=== PATIENT | male | born 1985 ===

== ENCOUNTER 2017-08-21 | Emergency (ER) | payer OTHER ==
--- NOTE | 2017-08-21 00:37 | C.PDOC ---
History Of Present Illness 32 y/o M c PMHx HTN p/w L ear pain x 1 week. States pain is constant, in ear and posteriorly. Denies fever, stiff neck, discharge, trauma, swelling. arrived from [place] 2 months ago and has not been on his HTN medication since because he left it in [place]. Received medical insurance this past week so came to ED today, states he does not know "the procedure" to get medical treatment. Denies chest pain, dyspnea, abdominal pain, back pain, vomiting, numbness, weakness. Time Seen by Provider: 08/21/17 00:25 Chief Complaint (Nursing): High Blood Pressure Past Medical History Vital Signs: Last Vital Signs Temp 97.5 F L 08/21/17 00:14 Pulse 76 08/21/17 00:14 Resp 20 08/21/17 00:14 BP 162/125 H 08/21/17 00:14 Pulse Ox 96 08/21/17 00:14 - Medical History PMH: HTN Surgical History: Appendectomy - Social History Hx Alcohol Use: No Hx Substance Use: No - Immunization History Hx Tetanus Toxoid Vaccination: No Hx Influenza Vaccination: No Hx Pneumococcal Vaccination: No Review Of Systems Except As Marked, All Systems Reviewed And Found Negative. Constitutional: Negative for: Fever Cardiovascular: Negative for: Chest Pain Physical Exam - Physical Exam Additional Physical Exam Comments: Gen: NAD Head: NC/AT Eyes: No scleral icterus ENT: L TM mildly erythematous. No external ear edema or tenderness with manipulation. No mastoid tenderness. Neck: FROM, no rigidity Chest: No tenderness CV: No extra heart sounds, regular rate Lungs: No crackles or rhonchi Abd: Soft, NT Back: No midline or CVA tenderness Extremities: No swelling or tenderness Skin: No rash Neuro: Alert, no focal deficit ED Course And Treatment O2 Sat by Pulse Oximetry: 96 Disposition - Disposition
[2017-08-21 00:53] VITALS: BP 152/103; PULSE 74; RESP 16; TEMP 98; O2SAT 100
== END 2017-08-21 01:04 | disposition home or self-care (01) ==
LOC: C.ER
DX: H66.92 Otitis media, unspecified, left ear (principal); I10 Essential (primary) hypertension

== ENCOUNTER 2018-03-05 00:52 | Emergency (ER) | payer SELFPAY ==
[2018-03-05 01:05] VITALS: TEMP 98.4
[2018-03-05 01:29] LABS: BASO % 0.5 % (0.0-2.0); EOS # 0.6 K/uL (0.0-0.7); EOS % 7.4 % (0.0-4.0); HEMOGLOBIN 13.4 g/dL (12.0-18.0); LYMPH # 2.1 K/uL (1.0-4.3); LYMPH % 24.6 % (20.0-40.0); MEAN CORPUSCULAR HEMOGLOBIN 22.2 pg (27.0-31.0); MEAN CORPUSCULAR HGB CONC 32.1 g/dL (33.0-37.0); MEAN PLATELET VOLUME 12.9 fL (7.2-11.7); MONO # 0.5 K/uL (0.0-0.8); MONO % 6.3 % (0.0-10.0); NEUT # 5.2 K/uL (1.8-7.0); NEUT % 61.2 % (50.0-75.0); NRBC % 0.1 % (0.0-2.0); RBC 6.05 Mil/uL (4.40-5.90); RED CELL DISTRIBUTION WIDTH 14.1 % (11.5-14.5); WHITE BLOOD COUNT 8.4 K/uL (4.8-10.8)
[2018-03-05] MEDS ORDERED: Sodium Chloride 0.9% 1,000 ML IV ONE (01:32)
--- NOTE | 2018-03-05 01:34 | C.PDOC ---
History Of Present Illness 32 year old male presents to the ED c/o left sided chest pain, localized that started yesterday. Patient reports pain increased on palpation and deep breathing. Patient denies fever, chills, SOB, palpitations, injury, fall, trauma, weakness, numbness. Chief Complaint (Nursing): Chest Pain History Per: Patient History/Exam Limitations: no limitations Onset/Duration Of Symptoms: Days Current Symptoms Are (Timing): Still Present Quality: "Pain" Exacerbating Factors: Movement, Deep Breathing Recent travel outside of the [place]: No Additional History Per: Patient Past Medical History Reviewed: Historical Data, Nursing Documentation, Vital Signs Vital Signs: Last Vital Signs Temp 98.4 F 03/05/18 01:01 Pulse 85 03/05/18 01:31 Resp 18 03/05/18 01:31 BP 133/85 03/05/18 01:31 Pulse Ox 97 03/05/18 01:31 - Medical History PMH: HTN Surgical History: Appendectomy Family History: States: Unknown Family Hx - Social History Hx Alcohol Use: No Hx Substance Use: No - Immunization History Hx Tetanus Toxoid Vaccination: No Hx Influenza Vaccination: No Hx Pneumococcal Vaccination: No Review Of Systems Constitutional: Negative for: Fever, Chills Cardiovascular: Positive for: Chest Pain. Negative for: Palpitations Gastrointestinal: Negative for: Nausea, Vomiting Skin: Negative for: Rash Neurological: Negative for: Weakness, Numbness Physical Exam - Physical Exam Appears: Non-toxic, No Acute Distress Skin: Normal Color, Warm, Dry Head: Atraumatic, Normacephalic Eye(s): bilateral: Normal Inspection Neck: Normal ROM, Supple Chest: Symmetrical, Tenderness (over left 4th parasternal area) Cardiovascular: Rhythm Regular Respiratory: Normal Breath Sounds, No Rales, No Rhonchi, No Wheezing Gastrointestinal/Abdominal: Soft, No Tenderness, No Guarding, No Rebound Extremity: Normal ROM, No Tenderness, No Swelling Neurological/Psych: Oriented x3, Normal Speech, Normal Cognition Gait: Steady ED Course And Treatment - Laboratory Results Result Diagrams: 03/05/18 01:24 03/05/18 01:24 ECG: Interpreted By Me, Viewed By Me ECG Rhythm: Sinus Rhythm ECG Interpretation: Normal, No Acute Changes Interpretation Of ECG: NSR, normal tracoings. Rate From EC O2 Sat by Pulse Oximetry: 97 (ON RA) Pulse Ox Interpretation: Normal Medical Decision Making Medical Decision Making: Plan: * Labs * CXR * EKG * IV fluids * Toradol 30 mg IVP Disposition - Disposition Referrals: Non [facility] Provider, [Primary Care Provider] - Disposition Time: 02:42 Condition: STABLE Prescriptions: Naproxen 375 mg PO TIDPC #20 tablet Instructions: Costochondritis (DC) Forms: [facility] (Faroese) - POA Present On Arrival: None - Clinical Impression Clinical Impression: Chest wall pain - Scribe Statement The provider has reviewed the documentation as recorded by the Scribe De Abdi All medical record entries made by the Scribe were at my direction and personally dictated by me. I have reviewed the chart and agree that the record accurately reflects my personal performance of the history, physical exam, medical decision making, and the department course for this patient. I have also personally directed, reviewed, and agree with the discharge instructions and disposition.
[2018-03-05 01:35] LABS: INR 1.1; PROTHROMBIN TIME 12.3 SECONDS (9.7-12.2)
[2018-03-05 01:38] LABS: ALB/GLOB RATIO 1.6 (1.0-2.1); ALBUMIN 4.4 g/dL (3.5-5.0); ALT/SGPT 25 U/L (21-72); AST/SGOT 25 U/L (17-59); BLOOD UREA NITROGEN 26 mg/dL (9-20); CALCIUM 9.2 mg/dl (8.6-10.4); GFR NON-AFRICAN AMERICAN > 60
[2018-03-05] MEDS ORDERED: Sodium Chloride 0.9% 1,000 ML ONE (01:40)
[2018-03-05 01:50] LABS: CK-MB 4.26 ng/mL (0.0-3.38)
[2018-03-05 02:00] VITALS: BP 142/100; PULSE 82; RESP 20
[2018-03-05 02:23] LABS: MEAN CELL VOLUME 69.2 fL (80.0-94.0)
[2018-03-05 02:44] VITALS: O2SAT 97
--- NOTE | 2018-03-05 08:55 | RAD ---
Date of service: 03/05/2018 HISTORY: Chest pain COMPARISON: 03/05/2018 FINDINGS: LUNGS: The lungs are clear. PLEURA: No significant pleural effusion identified, no pneumothorax apparent. CARDIOVASCULAR: Normal. OSSEOUS STRUCTURES: No significant abnormalities. VISUALIZED UPPER ABDOMEN: Normal. OTHER FINDINGS: None. IMPRESSION: No active pulmonary disease.
--- NOTE | 2018-03-05 08:59 | RAD ---
HISTORY: Left-sided chest pain COMPARISON: No prior. TECHNIQUE: Chest PA and lateral FINDINGS: LINES AND TUBES: None. LUNG AND PLEURA: The lungs are well inflated and clear. There is bibasilar atelectasis. No pleural effusion or pneumothorax. HEART AND MEDIASTINUM: The heart is not enlarged. The hilar and mediastinal contours are within normal limits. SKELETAL STRUCTURES: The bony structures are within normal limits for the patient's age. VISUALIZED UPPER ABDOMEN: Normal. OTHER FINDINGS: None. IMPRESSION: No active pulmonary disease.
== END 2018-03-05 02:54 | disposition home or self-care (01) ==
LOC: C.ER 00:52 → SUPCPDRO 00:52 → C.ER 02:54
DX: R07.89 Other chest pain (principal); I10 Essential (primary) hypertension
CPT/HCPCS: 71045; 71046; 80053; 83735; 84484; 85025; 85378; 85610; 85730; 96374; 99285; J1885; J7030

== ENCOUNTER 2018-04-25 06:42 | Emergency (ER) | payer SELFPAY ==
--- NOTE | 2018-04-25 07:49 | C.PDOC ---
History Of Present Illness HEMATOCHEZIA X 4 THIS MORNING. PS AWOKE FROM SLEEPING COUGHING, 4 EPISODES OF BRB CLOTS. NO NV. DENIES CP, SOB. DENIES SMOKING, TB CONTACT, TRAVEL WITHIN 1 YR. CURRENTLY ASYMPT. 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 Time Seen by Provider: 04/25/18 07:18 Chief Complaint (Nursing): Medical Clearance History Per: Patient History/Exam Limitations: no limitations Onset/Duration Of Symptoms: Hrs Current Symptoms Are (Timing): Gone Severity: Moderate Past Medical History Reviewed: Historical Data, Nursing Documentation, Vital Signs Vital Signs: Last Vital Signs Temp 97.9 F 04/25/18 06:50 Pulse 74 04/25/18 06:50 Resp 20 04/25/18 06:50 BP 139/99 H 04/25/18 06:50 Pulse Ox 99 04/25/18 06:50 - Medical History PMH: HTN Surgical History: Appendectomy Family History: States: No Known Family Hx - Social History Hx Alcohol Use: No Hx Substance Use: No - Immunization History Hx Tetanus Toxoid Vaccination: No Hx Influenza Vaccination: No Hx Pneumococcal Vaccination: No Review Of Systems Except As Marked, All Systems Reviewed And Found Negative. Constitutional: Negative for: Fever, Chills Cardiovascular: Negative for: Chest Pain Respiratory: Positive for: Cough. Negative for: Shortness of Breath Gastrointestinal: Positive for: Hematochezia. Negative for: Nausea, Vomiting Physical Exam - Physical Exam Appears: Non-toxic, No Acute Distress Skin: Normal Color (no pallor), Warm, Dry Head: Atraumatic, Normacephalic Eye(s): bilateral: Normal Inspection Ear(s): Bilateral: Normal Nose: Normal Oral Mucosa: Moist Throat: Normal, No Erythema, No Exudate Neck: Supple Chest: Symmetrical Cardiovascular: Rhythm Regular Respiratory: Normal Breath Sounds, No Rales, No Rhonchi, No Wheezing, Other (speaking full sentences) Neurological/Psych: Oriented x3, Normal Speech ED Course And Treatment - Laboratory Results Result Diagrams: 04/25/18 07:58 04/25/18 07:58 ECG: Interpreted By Me ECG Rhythm: Sinus Rhythm ECG Interpretation: Normal Rate From EC O2 Sat by Pulse Oximetry: 99 (RA) Pulse Ox Interpretation: Normal - Radiology CXR: Interpreted by Me, Viewed By Me CXR Interpretation: Yes: No Acute Disease Progress - Re-Evaluation Re-evaluation Note: 04/25/18 11:16 NO RECUR SX SINCE ER ARRIVAL. VSS NARD. CT NEG ADVISED FU PMD - Data Reviewed Data Reviewed: Lab, Diagnostic imaging, EKG, Old records Medical Decision Making Medical Decision Making: Plan: --Labs --ECG --CXR Disposition Counseled Patient/Family Regarding: Studies Performed, Diagnosis, Need For Followup - Disposition Referrals: YOUR,PMD [Other] Disposition: HOME/ ROUTINE Disposition Time: 11:17 Condition: GOOD Instructions: Coughing up Blood Forms: [facility] ([place]ican), Work Excuse - Clinical Impression Clinical Impression: Cough with hemoptysis - Scribe Statement The provider has reviewed the documentation as recorded by the Pierce Marks Provider Attestation: All medical record entries made by the Scribe were at my direction and personally dictated by me. I have reviewed the chart and agree that the record accurately reflects my personal performance of the history, physical exam, medical decision making, and the department course for this patient. I have also personally directed, reviewed, and agree with the discharge instructions and disposition.
[2018-04-25 08:02] LABS: BASO % 0.8 % (0.0-2.0); EOS # 0.4 K/uL (0.0-0.7); EOS % 6.6 % (0.0-4.0); HEMOGLOBIN 13.4 g/dL (12.0-18.0); LYMPH # 1.8 K/uL (1.0-4.3); LYMPH % 30.4 % (20.0-40.0); MEAN CELL VOLUME 69.4 fL (80.0-94.0); MEAN CORPUSCULAR HEMOGLOBIN 21.8 pg (27.0-31.0); MEAN CORPUSCULAR HGB CONC 31.4 g/dL (33.0-37.0); MEAN PLATELET VOLUME 11.4 fL (7.2-11.7); MONO # 0.6 K/uL (0.0-0.8); MONO % 10.7 % (0.0-10.0); NEUT # 3.1 K/uL (1.8-7.0); NEUT % 51.5 % (50.0-75.0); NRBC % 0.1 % (0.0-2.0); RBC 6.16 Mil/uL (4.40-5.90); RED CELL DISTRIBUTION WIDTH 14.7 % (11.5-14.5)
[2018-04-25 08:13] LABS: ALB/GLOB RATIO 1.4 (1.0-2.1); ALBUMIN 4.4 g/dL (3.5-5.0); ALT/SGPT 30 U/L (21-72); AST/SGOT 29 U/L (17-59); BLOOD UREA NITROGEN 24 mg/dL (9-20); CALCIUM 8.5 mg/dl (8.6-10.4); GFR NON-AFRICAN AMERICAN > 60
--- NOTE | 2018-04-25 09:46 | RAD ---
Chest x-ray two views HISTORY: Coughing blood. Hemoptysis. COMPARISON: None available. FINDINGS: No focal infiltrate or effusion. Left hilar prominence. Heart size within limits. IMPRESSION: No focal infiltrate or effusion. Left hilar prominence. Heart size within normal limits. If hemoptysis persists, correlation with chest CT is recommended.
--- NOTE | 2018-04-25 10:49 | CT ---
Date of service: 04/25/2018 CT chest without IV contrast Indication: HEMATOCHEZIA Technique: Contiguous axial images were obtained through the chest without intravenous contrast enhancement. Sagittal and coronal reconstructions were generated and reviewed. This CT exam was performed using 1 or more of the following dose reduction techniques: Automated exposure control, adjustment of the MAA and/or kV according to patient size, and/or use of iterative reconstruction technique. Radiation dose (DLP): 453.07 MGy-cm. Comparison: Chest x-ray performed 04/25/18 Findings: Visualized portions of the inferior thyroid gland appear unremarkable. The mediastinal and hilar vascular structures appear within normal limits. The heart appears within normal limits of size. Right cardiophrenic/pericardial cyst measures approximately 2.1 x 2.2 cm. No focal consolidation. No pleural effusion. No pneumothorax. Tiny scattered pulmonary nodules. For example: 2 mm right upper lobe (series 3, image 32); 4 mm right middle lobe (series 3, image 56); 2 mm right lower lobe (series 3, image 81); the 3 mm subpleural right lower lobe nodule (series 3, image 80); 2 mm lingula (series 3, image 51); 4 mm left lower lobe (series 3, image 77). Small hiatal hernia/distal esophageal wall thickening. Limited visualization of the noncontrast upper abdomen: 7 mm probable splenule. Otherwise grossly unremarkable. Mild bilateral gynecomastia. No acute osseous abnormality is detected. Impression: There are multiple, solid, pulmonary nodules that are less than 6 mm in size. According to the 2017 Fleischner criteria, if the patient is low risk, no routine follow-up is recommended. If the patient is high risk, an optional CT at 12 months is recommended. 2.1 x 2.2 cm right cardiophrenic/pericardial cyst. Small hiatal hernia/distal esophageal wall thickening. Mild bilateral gynecomastia.
[2018-04-25 10:58] VITALS: BP 132/102; PULSE 65; RESP 18; TEMP 97.6
[2018-04-25 11:19] VITALS: O2SAT 99
--- NOTE | 2018-04-26 22:12 | CARD ---
APPROVED REPORT Date of service: 04/25/2018 EKG Measurement Heart [id number] <Conclusion> Normal sinus rhythm Normal ECG
== END 2018-04-25 11:35 | disposition home or self-care (01) ==
LOC: C.ER 06:42
DX: R04.2 Hemoptysis (principal)

== ENCOUNTER 2018-08-03 13:53 | Emergency (ER) | payer OTHER ==
[2018-08-03 14:15] VITALS: BMI 27.3
[2018-08-03 14:17] VITALS: PULSE 72; O2SAT 100
--- NOTE | 2018-08-03 14:51 | C.PDOC ---
History Of Present Illness Patient is a 33 year old male who presents to the ED c/o left ear and facial pain with associated dizziness for the past 3 weeks. Patient also reports having a cough, runny nose, and several episodes of vomiting this morning. Patient states that he took ibuprofen without relief. Time Seen by Provider: 08/03/18 14:18 Chief Complaint (Nursing): ENT Problem History Per: Patient History/Exam Limitations: None Onset/Duration Of Symptoms: Other (3 weeks ) Past Medical History Reviewed: Historical Data, Nursing Documentation, Vital Signs Vital Signs: Last Vital Signs Temp 98.6 F 08/03/18 14:14 Pulse 72 08/03/18 14:14 Resp 18 08/03/18 14:14 BP 143/96 H 08/03/18 14:14 Pulse Ox 100 08/03/18 14:14 - Medical History PMH: HTN Surgical History: Appendectomy Family History: States: Unknown Family Hx - Social History Hx Alcohol Use: No Hx Substance Use: No - Immunization History Hx Tetanus Toxoid Vaccination: No Hx Influenza Vaccination: No Hx Pneumococcal Vaccination: No Review Of Systems ENT: Positive for: Ear Pain, Nose Discharge, Other (left facial pain) Respiratory: Positive for: Cough Gastrointestinal: Positive for: Vomiting Physical Exam - Physical Exam Appears: Non-toxic, No Acute Distress Skin: Warm, Dry Head: Atraumatic, Normacephalic, Other (questionable mastoid tenderness) Eye(s): bilateral: Normal Inspection, PERRL, EOMI Ear(s): Left: TM Erythema, Right: Normal Oral Mucosa: Moist Throat: No Erythema, No Exudate Neck: Normal ROM, Supple Chest: Symmetrical, No Deformity Cardiovascular: Rhythm Regular, No Friction Rub, No Murmur Respiratory: Normal Breath Sounds, No Rales, No Rhonchi, No Stridor, No Wheezing Gastrointestinal/Abdominal: Soft, No Tenderness Back: Normal Inspection, No CVA Tenderness Extremity: Normal ROM, No Swelling Neurological/Psych: Oriented x3, Normal Speech, Normal Motor, Normal Sensation Gait: Steady ED Course And Treatment - Laboratory Results Result Diagrams: 08/03/18 15:13 08/03/18 15:17 O2 Sat by Pulse Oximetry: 100 (on RA) Pulse Ox Interpretation: Normal - CT Scan/US CAT IAC Other Rad Studies (CT/US): Read By Radiologist, Radiology Report Reviewed CT/US Interpretation: Date of service: 08/03/2018. PROCEDURE: CT scan of the temporal bones without intravenous contrast. INDICATION: Left year pain, evaluate for mastoiditis. TECHNIQUE: High resolution axial images of the temporal bones were obtained without intravenous contrast. Coronal and sagittal reformats were generated. Radiation dose: Total exam DLP = 738.65 mGy-cm. This CT exam was performed using one or more of the following dose reduction techniques: Automated exposure control, adjustment of the mA and/or kV according to patient size, and/or use of iterative reconstruction technique. COMPARISON: None available. FINDINGS: RIGHT TEMPORAL BONE: The external Auditory Canal: T he external auditory canal is normal and well aerated. Middle Ear: The tympanic membrane is normal. The middle ear cavity is well aerated. The ossicles are normally formed. The scutum is sharp. There is no dehiscence of the tegmen tympani. The facial nerve follows a normal course. Inner Ear: The cochlea and semicircular canals are normal. Superior and lateral semicircular canals are well covered. The vestibular aqueduct is normal. IAC: The IAC is normal without gross evidence for mass. Mastoids: The mastoid air cells are normally developed and well aerated. LEFT TEMPORAL BONE: External Auditory Canal: The external auditory canal is normal and well aerated. Middle Ear: The tympanic membrane is normal. The middle ear cavity is well aerated. The ossicles are normally formed. The scutum is sharp. There is no dehiscence of the tegmen tympani. The facial nerve follows a normal course. Inner Ear: The cochlea and semicircular canals are normal. Superior and lateral semicircular canals are well covered. The vestibular aqueduct is normal. IAC: The IAC is normal without gross evidence for mass. Mastoids: The mastoid air cells are normally developed and well aerated. PARANASAL SINUSES: There is mild polypoid mucosal thickening in the maxillary sinuses, scattered mucosal thickening in the ethmoid air cells and aerosolized secretions in the right anterior sphenoid sinus. IMPRESSION: 1. Normal noncontrast CT scan of the. Temporal bones. Specifically, no evidence for left mastoiditis. 2. Chronic maxillary and ethmoid sinusitis. Aerosolized secretions in the sphenoid sinus may represent acute sinusitis in the appropriate clinical setting. Medical Decision Making Medical Decision Making: Plan: CAT IAC Labs Toradol 30mg IVP Zofran 4mg IVP On re-exam, the patient reports improvement of symptoms. Lungs are CTA, heart is RRR, abdomen is soft, non-tender and tolerating PO well. Pt is ambulatory in the ED with steady gait. Follow up with the medical doctor within 1-2 days. Return if worsened. Disposition - Disposition Referrals: [facility] [Outside] Disposition: HOME/ ROUTINE Disposition Time: 17:50 Condition: GOOD Additional Instructions: Follow up with the medical doctor within 1-2 days. Return if worsened. Prescriptions: Clindamycin [Cleocin] 300 mg PO TID #30 cap Ibuprofen [Motrin] 600 mg PO TID #21 tab Instructions: Ear Infections (Otitis Media) (DC) Forms: [employer] (Chinese) - Clinical Impression Clinical Impression: Otitis media - PA / SITECORE DEVELOPER / Resident Statement MD/DO has examined the patient and agrees with the treatment plan. - Scribe Statement The provider has reviewed the documentation as recorded by the Simaibmattie Barrios All medical record entries made by the Scribe were at my direction and personally dictated by me. I have reviewed the chart and agree that the record accurately reflects my personal performance of the history, physical exam, medical decision making, and the department course for this patient. I have also personally directed, reviewed, and agree with the discharge instructions and disposition.
[2018-08-03 15:24] LABS: BASO % 0.6 % (0.0-2.0); EOS # 0.3 K/uL (0.0-0.7); HEMOGLOBIN 14.4 g/dL (12.0-18.0); LYMPH # 1.6 K/uL (1.0-4.3); MEAN CORPUSCULAR HEMOGLOBIN 22.3 pg (27.0-31.0); MEAN CORPUSCULAR HGB CONC 31.9 g/dL (33.0-37.0); NEUT % 67.7 % (50.0-75.0); NRBC % 0.1 % (0.0-2.0)
[2018-08-03 15:29] LABS: EOS % 4.4 % (0.0-4.0); LYMPH % 19.9 % (20.0-40.0); MEAN PLATELET VOLUME 10.6 fL (7.2-11.7); MONO # 0.6 K/uL (0.0-0.8); MONO % 7.4 % (0.0-10.0); NEUT # 5.3 K/uL (1.8-7.0); RBC 6.45 Mil/uL (4.40-5.90); WHITE BLOOD COUNT 7.8 K/uL (4.8-10.8)
[2018-08-03 15:37] LABS: ALB/GLOB RATIO 1.5 (1.0-2.1); ALBUMIN 4.6 g/dL (3.5-5.0); ALT/SGPT 15 U/L (21-72); AST/SGOT 28 U/L (17-59); BLOOD UREA NITROGEN 16 mg/dL (9-20); CALCIUM 9.6 mg/dl (8.6-10.4); GFR NON-AFRICAN AMERICAN > 60
--- NOTE | 2018-08-03 16:13 | CT ---
Date of service: 08/03/2018 PROCEDURE: CT scan of the temporal bones without intravenous contrast. INDICATION: Left year pain, evaluate for mastoiditis TECHNIQUE: High resolution axial images of the temporal bones were obtained without intravenous contrast. Coronal and sagittal reformats were generated. Radiation dose: Total exam DLP = 738.65 mGy-cm. This CT exam was performed using one or more of the following dose reduction techniques: Automated exposure control, adjustment of the mA and/or kV according to patient size, and/or use of iterative reconstruction technique. COMPARISON: None available. FINDINGS: RIGHT TEMPORAL BONE: The external Auditory Canal: The external auditory canal is normal and well aerated. Middle Ear: The tympanic membrane is normal. The middle ear cavity is well aerated. The ossicles are normally formed. The scutum is sharp. There is no dehiscence of the tegmen tympani. The facial nerve follows a normal course. Inner Ear: The cochlea and semicircular canals are normal. Superior and lateral semicircular canals are well covered. The vestibular aqueduct is normal. IAC: The IAC is normal without gross evidence for mass. Mastoids: The mastoid air cells are normally developed and well aerated. LEFT TEMPORAL BONE: External Auditory Canal: The external auditory canal is normal and well aerated. Middle Ear: The tympanic membrane is normal. The middle ear cavity is well aerated. The ossicles are normally formed. The scutum is sharp. There is no dehiscence of the tegmen tympani. The facial nerve follows a normal course. Inner Ear: The cochlea and semicircular canals are normal. Superior and lateral semicircular canals are well covered. The vestibular aqueduct is normal. IAC: The IAC is normal without gross evidence for mass. Mastoids: The mastoid air cells are normally developed and well aerated. PARANASAL SINUSES: There is mild polypoid mucosal thickening in the maxillary sinuses, scattered mucosal thickening in the ethmoid air cells and aerosolized secretions in the right anterior sphenoid sinus. IMPRESSION: 1. Normal noncontrast CT scan of the. Temporal bones. Specifically, no evidence for left mastoiditis 2. Chronic maxillary and ethmoid sinusitis. Aerosolized secretions in the sphenoid sinus may represent acute sinusitis in the appropriate clinical setting.
[2018-08-03 18:13] VITALS: BP 144/89; RESP 16; TEMP 97.7
== END 2018-08-03 18:13 | disposition home or self-care (01) ==
LOC: C.ER 13:53
DX: H66.92 Otitis media, unspecified, left ear (principal)
CPT/HCPCS: 70480; 80053; 85025; 96365; 96375; 99284; J1885; J2405